=== PATIENT | female | born 1965 | race Two or more races ===

== ENCOUNTER 2016-12-12 06:04 | Emergency (ER) | payer OTHER ==
[~2016-12-12] VITALS: Ht 167.6 cm; Wt 93.2 kg
[~2016-12-12 06:04] MED LIST: COLD MEDICATION
[2016-12-12 06:05] VITALS: Ht 167.6 cm; Wt 93.2 kg
[2016-12-12] MEDS ORDERED: ACET500C5 PO (06:41)
--- NOTE | 2016-12-12 06:51 | ERD ---
ER Documentation Chief Complaint Date/Time DATE: 12/12/16 TIME: 06:43 Chief Complaint sore throat x 2 days and headache starting today HPI 51-year-old female brought into the ED by RA is complaining of headache 1 hour. Patient stated that she woke up with a pressure-like pain on the top of her head. She took Tylenol, and check her blood pressure. Blood pressure was around 150/100. She was concerned about her blood pressure and called 911. Patient states that she has headaches in the past, but "never like this". She has a sore throat for the past 2 days, having trouble swallowing. Thus she has not been able to eat or drink fluids. Her PCP is prescribed penicillin for her for her sore throat. She started taking it yesterday. Patient stated that her headache has resolved at this time. Denies fever or chills. Denies cough or shortness of breath. Denies neck pain. He denies blurry vision. Denies one- sided paresthesia or weakness. ROS All systems reviewed and are negative except as per history of present illness. Medications Home Meds Active Scripts Acetaminophen* (Tylophen*) 500 Mg Capsule, 1 CAP PO Q6H Y for PAIN AND OR ELEVATED TEMP, #20 CAP Prov:LUCY BUTLER CRITICAL CARE UNIT MANAGER 12/12/16 Reported Medications [Otc Cold Medication] No Conflict Check 01/14/10 Allergies Allergies: Coded Allergies: No Known Drug Allergies (Verified Allergy, Mild, 10/12/14) PMhx/Soc Medical and Surgical Hx: pt denies Medical Hx, pt denies Surgical Hx Hx Alcohol Use: No Hx Substance Use: No Hx Tobacco Use: No Smoking Status: Never smoker Physical Exam Vitals Vital Signs Date Time Temp Pulse Resp B/P Pulse Ox O2 Delivery O2 Flow Rate FiO2 12/12/16 06:05 98.6 86 16 127/83 99 Physical Exam General impression: Well-developed, well-nourished, 51-year-old female, alert, oriented, in no acute distress Head: Normocephalic, atraumatic. Eyes: PERRL, EOM normal. Conjunctiva not injected. ENT: Nasal mucosa, oral mucosa and oropharynx are normal. No pharyngeal erythema, swelling, or exudates. Neck: Supple, nontender. No lymphanopathy. No nuchal rigidity. Bilateral upper trapezius tightness noted. Respiration: Normal respiratory effort. Lungs clear to auscultate bilaterally. No wheezes, rales or rhonchi. Cardiovascular: Regular rate and rhythm. No murmurs or extra heart sounds. Neuro: Mental status normal, speech normal. 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 Normal sensation and strength in all 4 extremities. No focal weakness noted. Skin: Normal turgor. No rash or lesions. Psych: Normal mood and affect. Procedures/MDM Well-appearing 51-year-old female presents to ED with headache 1 hour. Headache has since resolved after taking Tylenol at home. She was concerned about her elevated blood pressure. BP upon arrival was 127/83. Likely her elevated BP at home is secondary to pain. She does not have any sign of stroke. I have low suspicion for intracranial hemorrhage or mass. Her headache is likely from inadequate fluid intake, combined with tension type. Patient is reassured in the ED. Patient appears well, stable for discharge and outpatient management. Medical decision making shared with patient and family. Education provided to patient and family. Patient and family expressed understanding of the plan. Medications on discharge: Tylenol. Follow-up: Primary care provider in 2-3 days or return to ED if worse. Departure Diagnosis: Primary Impression: Headache Headache type: tension-type Headache chronicity pattern: acute headache Intractability: not intractable Qualified Code: G44.209 - Acute non intractable tension-type headache Condition: Stable Patient Instructions: Self-Care for Headaches Additional Instructions: Call your primary care doctor TOMORROW for an appointment during the next 2-3 days.See the doctor sooner or return here if your condition worsens before your appointment time. LUYC BUTLER NP Dec 12, 2016 06:51
== END 2016-12-12 07:02 | disposition home or self-care (01) ==
LOC: FTE 06:04
DX: G44.209 Tension-type headache, unspecified, not intractable (principal)
CPT/HCPCS: 99283

== ENCOUNTER 2017-10-25 01:05 | Emergency (ER) | payer OTHER ==
[~2017-10-25] VITALS: Ht 167.6 cm; Wt 99.2 kg
[~2017-10-25 01:05] MED LIST changes: +ACET500C5 PO
[2017-10-25 01:09] VITALS: Ht 167.6 cm; Wt 99.2 kg
--- NOTE | 2017-10-25 02:24 | ERD ---
ER Documentation Chief Complaint Chief Complaint Palpitation, dizziness, anxiety HPI The patient is a 52-year-old female, presenting to the ER because of palpitation at 11 PM. It lasted for approximately 5-10 min, then went away by itself. She is very anxious, denies any chest pain, pain with exertion/vomiting /diaphoresis, dyspnea, abdominal pain, vomiting, dysuria, diarrhea. She does not smoke nor drink Medical history: None Surgical history: Hysterectomy ROS All systems reviewed and are negative except as per history of present illness. Medications Home Meds Active Scripts Acetaminophen* (Tylophen*) 500 Mg Capsule, 1 CAP PO Q6H Y for PAIN AND OR ELEVATED TEMP, #20 CAP Prov:LUCY BUTLER Jozef. [employer]ISHER 12/12/16 Reported Medications [Otc Cold Medication] No Conflict Check 01/14/10 Allergies Allergies: Coded Allergies: No Known Drug Allergies (Verified Allergy, Mild, 10/12/14) PMhx/Soc Hx Alcohol Use: No Hx Substance Use: No Hx Tobacco Use: No Physical Exam Vitals Vital Signs Date Time Temp Pulse Resp B/P Pulse Ox O2 Delivery O2 Flow Rate FiO2 10/25/17 03:06 Nasal Cannula 2 10/25/17 03:06 72 13 123/94 96 Room Air 10/25/17 01:09 97.8 82 20 154/92 97 Physical Exam Const: No acute distress. Anxious Head: Atraumatic. Eyes: Normal Conjunctiva. ENT: Normal External Ears, Nose and Mouth. Neck: Full range of motion. No meningismus. Resp: Clear to auscultation bilaterally. Cardio: Regular rate and rhythm. Abd: Soft, non distended, normal bowel sounds, non tender. Skin: No petechiae or rashes. Back: No midline or flank tenderness. Ext: No cyanosis, or edema. Neur: Awake and alert. No focal deficit Psych: Normal Mood and Affect. Result Diagram: 10/25/17 0300 10/25/17 0300 Results 24 hrs Laboratory Tests Test 10/25/17 03:00 White Blood Count 5.810^3/ul Red Blood Count 4.8810^6/ul Hemoglobin 14.3g/dl Hematocrit 42.4% Mean Corpuscular Volume 86.9fl Mean Corpuscular Hemoglobin 29.3pg Mean Corpuscular Hemoglobin Concent 33.7g/dl Red Cell Distribution Width 12.8% Platelet Count 22374^3/UL Mean Platelet Volume 10.1fl Neutrophils % 51.6% Lymphocytes % 35.3% Monocytes % 10.9% Eosinophils % 0.2% Basophils % 1.7% Nucleated Red Blood Cells % 0.0/100WBC Neutrophils # 3.010^3/ul Lymphocytes # 2.110^3/ul Monocytes # 0.610^3/ul Eosinophils # 0.010^3/ul Basophils # 0.110^3/ul Nucleated Red Blood Cells # 0.010^3/ul D-Dimer 447.51ng/ml D-Dimer Comment Sodium Level 145mmol/L Potassium Level 3.5mmol/L Chloride Level 106mmol/L Carbon Dioxide Level 28mmol/L Anion Gap 15 Blood Urea Nitrogen 17mg/dl Creatinine 0.81mg/dl Glucose Level 183mg/dl Calcium Level 9.9mg/dl Troponin I < 0.012ng/ml Current Medications Medications (Trade) Dose Ordered Sig/Sandi Route PRN Reason Start Time Stop Time Status Last Admin Dose Admin Lorazepam (Ativan) 0.5 mg ONCE ONCE PO 10/25/17 03:00 10/25/17 03:01 DC 10/25/17 02:49 Procedures/[place] [id number] Radiology Main Line: [phone] DIAGNOSTIC IMAGING REPORT Patient: KASSY LAWS : 1965 Age: 52 Sex: F MR #: [id number] DOS: 10/25/17 0231 Ordering MD: CRUZ NICHOLAS MD Location: E/R Room/Bed: PROCEDURE: CHEST - 1 VIEW CLINICAL INDICATION: 52-year-old female with chest pain. TECHNIQUE: A single frontal AP portable view of the chest was performed. The images were reviewed on a PACS workstation. COMPARISON: None. FINDINGS: The cardiomediastinal silhouette has a normal appearance. There is no evidence for an infiltrate. There is no evidence for congestive heart failure. There is no evidence for pneumothorax. The osseous structures are intact. IMPRESSION: No evidence for active cardiopulmonary disease. .Reggie Cervantes MD, Date Time Electronically viewed and signed by .Reggie Cervantes MD, MD on 10/25/2017 03:58 .M/ CC: CRUZ NICHOLAS MD EK:17 am Read by emergency physician Rate/Rhythm: Normal Sinus Rhythm 85 beats/min QRS, ST, T-waves: No ST elevation, no T inversion, LAE Impression: Abnormal EKG EK:53 am Read by emergency physician Rate/Rhythm: Normal Sinus Rhythm 74 beats/min QRS, ST, T-waves: No ST elevation, no T inversion, LAE Impression: Abnormal EKG MEDICAL MAKING DECISION: The patient is a 52-year-old female, presenting with acute palpitation, acute anxiety. She was treated with Ativan 0.5 mg p.o. with good response The differential diagnoses considered include but are not limited to acute coronary syndrome, acute myocardial infarction, pericarditis, pulmonary embolism , aortic dissection, pneumonia, pleural effusion, pneumothorax, GERD, chest wall pain. Departure Diagnosis: Primary Impression: Palpitation Additional Impression: Anxiety Condition: Good Comments The patient's blood pressure was elevated (>120/80) but appears stable without evidence of hypertension emergency or urgency. The patient was counseled about the risks of hypertension and urged to pursue outpatient monitoring and therapy within a week with their primary care physician. I discussed the findings with the patient. I advised the patient to follow-up with the primary physician in about 1-2 days, sooner if needed and return if any concern. Disclaimer: Inadvertent spelling and grammatical errors are likely due to EHR/ dictation software use and do not reflect on the overall quality of patient care. Also, please note that the electronic time recorded on this note does not necessarily reflect the actual time of the patient encounter. CRUZ NICHOLAS MD Oct 25, 2017 02:24
[2017-10-25] MEDS ORDERED: LORAZEPAM 0.5 MG TAB PO ONE (03:00)
--- NOTE | 2017-10-25 03:59 | RADRPT ---
PROCEDURE: CHEST - 1 VIEW CLINICAL INDICATION: 52-year-old female with chest pain. TECHNIQUE: A single frontal AP portable view of the chest was performed. The images were reviewed on a PACS workstation. COMPARISON: None. FINDINGS: The cardiomediastinal silhouette has a normal appearance. There is no evidence for an infiltrate. There is no evidence for congestive heart failure. There is no evidence for pneumothorax. The osseou s structures are intact. IMPRESSION: No evidence for active cardiopulmonary disease. .Reggie Cervantes MD, MD Date Time Electronically viewed and signed by .Reggie Cervantes MD, on 10/25/2017 03:58 .M/
[2017-10-25 04:03] LABS: D-DIMER 447.51 ng/ml (<460)
[2017-10-25 04:20] LABS: BASOPHIL # 0.1 10^3/ul (0.0-0.1); BASOPHILS % 1.7 % (0.0-2.0); EOSINOPHILS % 0.2 % (0.0-7.0); HEMATOCRIT 42.4 % (37.0-47.0); HEMOGLOBIN 14.3 g/dl (12.0-16.0); LYMPHOCYTES # 2.1 10^3/ul (0.8-2.9); LYMPHOCYTES % 35.3 % (15.0-51.0); MEAN CORPUSCULAR HEMOGLOBIN 29.3 pg (29.0-33.0); MEAN CORPUSCULAR HGB CONC 33.7 g/dl (32.0-37.0); MEAN CORPUSCULAR VOLUME 86.9 fl (82.0-101.0); MEAN PLATELET VOLUME 10.1 fl (7.4-10.4); MONOCYTE # 0.6 10^3/ul (0.3-0.9); MONOCYTES % 10.9 % (0.0-11.0); NEUTROPHILS % 51.6 % (39.0-77.0); PLATELET COUNT 227 10^3/UL (140-415); RED BLOOD COUNT 4.88 10^6/ul (4.20-5.40); RED CELL DISTRIBUTION WIDTH 12.8 % (11.5-14.5); WHITE BLOOD COUNT 5.8 10^3/ul (4.8-10.8)
[2017-10-25 04:21] LABS: ANION GAP 15 (8-16); BLOOD UREA NITROGEN 17 mg/dl (7-20); CALCIUM 9.9 mg/dl (8.4-10.2); CARBON DIOXIDE 28 mmol/L (21-31); CHLORIDE 106 mmol/L (97-110); CREATININE 0.81 mg/dl (0.44-1.00); GLUCOSE 183 mg/dl (70-220); POTASSIUM 3.5 mmol/L (3.5-5.1); SODIUM 145 mmol/L (135-144)
[2017-10-25 04:33] LABS: TROPONIN-I < 0.012 ng/ml (0.00-0.12)
[2017-10-25 06:01] VITALS: BP 103/66; PULSE 71; RESP 13
== END 2017-10-25 06:00 | disposition home or self-care (01) ==
LOC: E/R 01:05
DX: R00.2 Palpitations (principal); F41.9 Anxiety disorder, unspecified
CPT/HCPCS: 36415; 71010; 80048; 84484; 85025; 85378; 93005; Z7502; Z7610

== ENCOUNTER 2018-02-25 13:02 | Emergency (ER) | END 2018-02-25 15:55 | disposition home or self-care (01) ==